=== PATIENT | male | born 1960 | race Caucasian/White ===

== ENCOUNTER 2023-02-02 00:50 | Day surgery (SDC) | payer BC, SELFPAY ==
[2023-02-01 16:24] VITALS: BMI 22.1
[2023-02-02 07:36] VITALS: BP 97/55; PULSE 57; RESP 15; TEMP 36.1; O2SAT 97; BMI 21.4
[2023-02-02 07:49] LABS: Basophils Absolute Auto 0.1 K/mm3 (0.0-0.1); Basophils Percent Auto 1.1 % (0.2-1.2); Eosinophils Absolute Auto 0.3 K/mm3 (0-0.3); Eosinophils Percent Auto 4.4 % (0-4.4); Hematocrit 41.8 % (42.0-52.0); Hemoglobin 14.1 g/dL (14.0-18.0); Immature Granulocyte Absolute 0.04 K/mm3 (0.00-0.031); Immature Granulocyte Percent A 0.6 % (0-0.5); Mean Corpuscular HGB Conc 33.7 g/dl (32-36); Mean Corpuscular Hemoglobin 33.3 pg (26-34); Mean Corpuscular Volume 98.6 fl (80-100); Mean Platelet Volume 9.2 fl (7.4-10.4); Monocytes Absolute Auto 0.8 K/mm3 (0.1-0.6); Neutrophils Absolute Auto 4.3 K/mm3 (1.3-6.7); Neutrophils Percent Auto 61.9 % (45.5-73.1); Platelet Count Result 242 k/mm3 (150-375); Red Blood Count 4.24 M/mm3 (4.6-6.20); Red Cell Distribution Width 14.4 % (11.5-14.5)
[2023-02-02 07:57] LABS: Anion Gap 7 mmol/L (8-16); Blood Urea Nitrogen 22 mg/dL (9-20); Calcium 8.9 mg/dL (8.4-10.2); Carbon Dioxide 23 mmol/L (22-30); Chloride 105 mmol/L (98-107); Estimated CRCL calculation 74 ml/min; Estimated Glomerular Filt Rate > 60; Glucose 102 mg/dL (65-110); Sodium 135 mmol/L (137-145)
--- NOTE | 2023-02-02 08:34 | PM.IMHP ---
H&P: HPI History of Present Illness Date/Time: 02/02/23 08:34 Chief Complaint: ICD at elective replacement interval Narrative: Artur Sanchez is a 62-year-old male with a [employer] ICD which has reached elective replacement interval. He is here for generator change. He is feeling well, no recent problems with KENNEDY, dizzy spells or palpitations, no fever or signs of infection. His hold his warfarin for 5 days and Plavix for 2 days. History of remote large anterior NH, ischemic cardiomyopathy, stenting of the circumflex and Left anterior descending in April 2018, sustained a nonsustained V-tach, and [employer] ICD. He has had ICD discharges and a V-tach ablation by Dr. Rangel in 2010 at which time 4/5 foci were ablated. His ventricular tachycardia occasional requires anti tachy pacing and is currently treated with sotalol. Review of Systems Constitutional: Constitutional: Denies fever(s) Eyes: Eyes: Reports no additional eye complaints ENT: Denies epistaxis Cardiovascular: Cardiovascular: Denies chest pain, Denies pedal edema, Denies lightheadedness and Denies dyspnea Respiratory: Respiratory: Denies chest congestion and Denies dyspnea Gastrointestinal: Gastrointestinal: Denies abdominal pain, Denies hematochezia and Reports constipation Genitourinary: Genitourinary: Denies dysuria Musculoskeletal: Musculoskeletal: Reports no additional musculoskeletal complaints Integumentary/Breasts: Skin/Breast: Reports system reviewed and no additional complaints, except as docu Neurologic: Reports system reviewed and no additional complaints, except as documented and Denies behavioral changes Psychiatric: Psychiatric: Denies behavioral changes [facility] Past Medical History Medical History (Updated 02/02/23 @ 08:42 by Viri Meadows MD) CAD (coronary artery disease) Large anterior NH treated with PTCA in 1992. Stenting of the circumflex and Left anterior descending in 2017, with residual disease of a small non dominant right coronary artery. Hyperlipidemia ICD (implantable cardioverter-defibrillator) in place [employer] ICD, Maggi change 01/2023. Ischemic cardiomyopathy Large anterior NH treated with PTCA in 1992 with resultant ischemic cardiomyopathy. 01/2023 EF 38%. LBBB (left bundle branch block) TIA (transient ischemic attack) 2000, due to LV thrombus, anticoagulated now. Tobacco use Ventricular tachycardia Sustained and nonsustained V-tach, V-tach ablation by Dr. Rangel in 2010 at which time 4/5 foci were ablated. Occasionally requires anti tachy pacing and treated with sotalol. 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 Smoking packs per day: 1.5 Smoking cigarettes per day: 30.0 Smoking status: Never smoker Tobacco type: cigarettes Alcohol intake: current Drinks per week: 14 Alcohol use details: 10-14 beers per week Substance use: never Substance use type: does not use Living arrangements: with family Spiritual care concerns: No Meds Home Medications and Allergies Home Medications Medication Instructions Recorded Confirmed Type Lactobacillus acidophilus 10,000 mmu cells PO 02/01/23 02/01/23 History carvedilol 25 mg tablet 25 mg PO Q12H 02/01/23 02/02/23 History clopidogrel 75 mg tablet 75 mg PO DAILY 02/01/23 02/01/23 History docusate sodium 100 mg capsule 100 mg PO DAILY 02/01/23 02/02/23 History ezetimibe 10 mg-simvastatin 40 mg 1 tablet PO 02/01/23 02/01/23 History tablet fenofibrate 160 mg tablet 160 mg PO DAILY 02/01/23 02/02/23 History lisinopril 10 mg tablet 5 mg PO Q12H 02/01/23 02/02/23 His
--- NOTE | 2023-02-02 08:43 | WPDMODSED ---
Moderate Sedation Note-Pt Data Patient Data Diagnosis: [employer] ICD at elective replacement interval Present Complaint: Artur Sanchez is a 62-year-old male with a [employer] ICD which has reached elective replacement interval.? He is here for generator change.? He is feeling well, no recent problems with KENNEDY, dizzy spells or palpitations, no fever or signs of infection.? His hold his warfarin for 5 days and Plavix for 2 days. History of remote large anterior MD, ischemic cardiomyopathy, stenting of the circumflex and Left anterior descending in April 2018, sustained a nonsustained V-tach, and [employer] ICD.? He has had ICD discharges and a V-tach ablation by Dr. Rangel in 2010 at which time 4/5 foci were ablated.? His ventricular tachycardia occasional requires anti tachy pacing and is currently treated with sotalol. Procedure to be performed/Plan: Conscious sedation ICD generator change Allergies Allergy/AdvReac Type Severity Reaction Status Date / Time rosuvastatin AdvReac Itching Verified 02/02/23 07:31 DARVOCET AdvReac Intermediate passed out Uncoded 02/01/23 16:44 Home Medications Medication Instructions Recorded Confirmed Type Lactobacillus acidophilus 10,000 mmu cells PO HS 02/01/23 02/01/23 History carvedilol 25 mg tablet 25 mg PO Q12H 02/01/23 02/02/23 History clopidogrel 75 mg tablet 75 mg PO DAILY 02/01/23 02/01/23 History docusate sodium 100 mg capsule 100 mg PO DAILY 02/01/23 02/02/23 History ezetimibe 10 mg-simvastatin 40 mg 1 tablet PO HS 02/01/23 02/01/23 History tablet fenofibrate 160 mg tablet 160 mg PO DAILY 02/01/23 02/02/23 History lisinopril 10 mg tablet 5 mg PO Q12H 02/01/23 02/02/23 History magnesium 250 mg tablet 250 mg PO DAILY 02/01/23 02/01/23 History psyllium husk 0.4 gram capsule 0.4 g PO BID 02/01/23 02/02/23 History (Fiber (psyllium husk)) sotalol 80 mg tablet 120 mg PO Q12H 02/01/23 02/02/23 History spironolactone 25 mg tablet 25 mg PO DAILY 02/01/23 02/01/23 History warfarin 5 mg tablet 5 mg PO DIRECTED 02/01/23 02/01/23 History Sedation/Anesthesia: No previous sedation/anesthesia problems (including family history). [facility] Past Medical History Medical History (Updated 02/02/23 @ 08:42 by Viri Meadows MD) CAD (coronary artery disease) Large anterior MD treated with PTCA in 1992. Stenting of the circumflex and Left anterior descending in 2018, with residual disease of a small non dominant right coronary artery. Hyperlipidemia ICD (implantable cardioverter-defibrillator) in place [employer] ICD, Maggi change 01/2023. Ischemic cardiomyopathy Large anterior MD treated with PTCA in 1992 with resultant ischemic cardiomyopathy. 01/2023 EF 38%. LBBB (left bundle branch block) TIA (transient ischemic attack) 2000, due to LV thrombus, anticoagulated now. Tobacco use Ventricular tachycardia Sustained and nonsustained V-tach, V-tach ablation by Dr. Rangel in 2010 at which time 4/5 foci were ablated. Occasionally requires anti tachy pacing and treated with sotalol. 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 Smoking packs per day: 1.5 Smoking cigarettes per day: 30.0 Smoking status: Never smoker Tobacco type: cigarettes Alcohol intake: current Drinks per week: 14 Alcohol use details: 10-14 beers per week Substance use: never Substance use type: does not use Living arrangements: with family Spiritual care concerns: No Mod Sed Physical Exam Physical Exam Pre Procedural Exam: Normal: Appearance, Eyes, Ears, Nose, Neck, Throat (Dentures), Airway, Lungs, Heart Size, Heart Ra
[2023-02-02 10:00] VITALS: BP 104/60; PULSE 51; RESP 15; O2SAT 98
--- NOTE | 2023-02-02 10:09 | P.OPB_ITS ---
Procedure Note - Brief Procedure Note - Brief Date of procedure: 02/02/23 end of life battery change Procedure performed: conscious sedation [employer] ICD Generator change Surgeon: Viri Meadows MD Description of procedure: uneventful generator change Complications: No immediate complications Condition: Stable Disposition: Observation
[2023-02-02 10:15] VITALS: BP 98/70; PULSE 54; RESP 12; O2SAT 99
--- NOTE | 2023-02-02 10:17 | P.OP_ITS ---
Procedure Note - Detailed Date of Procedure 02/02/23 Pre-op Diagnosis end of life battery change Post-op Diagnosis Other (S/P ICD generator change) Procedure Performed Conscious sedation Dual chamber ICD generator change Surgeon Viri Meadows MD Anesthesia Local (With conscious sedation) Indications 62 y.o. male w/ a h/o ischemic cardiomyopathy since his large anterior IL in 1992, h/o sustained and nonsustained VT, here for [employer] ICD generator change as it hsa reached elective replacement interval. Findings NSR, not pacer-dependent Description of Procedure PROCEDURE: Conscious sedation Generator change UNDERLYING RHYTHM: Normal sinus rhythm CONSCIOUS SEDATION: Assessment: The patient has no history of anesthesia problems. The oropharynx is clear. The patient was deemed to be a good candidate for conscious sedation. The patient had continuous hemodynamic and oximetric monitoring during the procedure. Start time: 9:05 a.m. Completion time: 9:48 a.m. Total conscious sedation time: 43 minutes Medications: Versed 1 mg, fentanyl 100 mcg IV push Trained observer:Maribell Mackay RN Outcome: The patient tolerated the procedure well with no complications. PROCEDURE: After informed consent, the patient is brought to the cath lab radiology technician and the left prepectoral area was prepped and draped in usual fashion. The patient was given a prophylactic antibiotic intravenously with Ancef. After conscious sedation as described above, the area was anesthetized with 1% lidocaine. A skin incision is made with the Plasma Blade and carried down to the pacing capsule which was also incised. Hemostasis is obtained using the Plasma Blade. The lead/s was/were freed from the underlying capsule and inspected and were found to be intact. The pulse generator was delivered from the pocket. The lead/s was/were disconnected from the existing device and reconnected to the new device. A gentle tug could not remove it/them. The device and lead/s was/were interrogated and found to be functioning appropriately. The area was copiously irrigated with antibiotic-containing solution. The device was placed in a TyRx and replaced in the pocket. The subcutaneous tissues were closed in a two-layer fashion with interrupted 2 0 Vicryl sutures and the skin was closed in a continuous fashion using 4 0 Vicryl. The area was cleansed, an Aquacel dressing applied. The patient tolerated the procedure well with no complications. Estimated blood loss was negligible. THRESHOLD INFORMATION: Right atrial lead: P-wave sensing 1.6 mV, impedance 504 Ohms, threshold 0.8 volts at 0.4 milliseconds. Right ventricular lead: R-wave sensing 24.6 mV, impedance 592 Ohms, threshold 1.0 volts at 0.4 milliseconds PROGRAMMED PARAMETERS: DDD 50-130 V-tach some 165 ppm, VFib zone 200 beats p.m. Implants Pulse generator: [employer] model D 153, serial [id number] Right atrial lead: [employer] model 4470, serial [id number], implanted 01/17/2004 Right ventricular lead: [employer] model 0185, serial [id number], implanted 01/17/2004 Explanted pulse generator: [employer] model E 110, serial [id number], implanted 03/26/2010 Estimated Blood Loss 5 Complications No immediate complications Condition Stable Disposition Observation
[2023-02-02 10:30] VITALS: BP 104/62; PULSE 53; RESP 14; O2SAT 97
[2023-02-02 10:45] VITALS: BP 112/77; PULSE 51; RESP 20; O2SAT 98
[2023-02-02 11:00] VITALS: BP 113/82; PULSE 50; RESP 16; O2SAT 99
== END 2023-02-02 11:10 | disposition home or self-care (01) ==
PROVIDERS: Visit Provider Internal Medicine Cardiovascular Disease
PROC: 0JPT0PZ Removal of Cardiac Rhythm Related Device from Trunk Subcutaneous Tissue and Fascia, Open Approach (ICD-10-PCS; CPT 33228; principal; 2023-02-02 08:30)
DX: Z45.02 Encounter for adjustment and management of automatic implantable cardiac defibrillator (principal); I25.5 Ischemic cardiomyopathy; I25.2 Old myocardial infarction; I47.20 Ventricular tachycardia, unspecified; I25.10 Atherosclerotic heart disease of native coronary artery without angina pectoris; E78.5 Hyperlipidemia, unspecified; I44.7 Left bundle-branch block, unspecified; Z86.73 Personal history of transient ischemic attack (TIA), and cerebral infarction without residual deficits; Z79.01 Long term (current) use of anticoagulants; Z79.02 Long term (current) use of antithrombotics/antiplatelets; Z95.5 Presence of coronary angioplasty implant and graft
CPT/HCPCS: 33228; 36415; 80048; 85025; 85610; C1721; J0690; J2250; J3010; J7040